=== PATIENT | female | born 1955 | race Caucasian/White ===

== ENCOUNTER 2018-01-20 11:50 | Day surgery (SDC) | payer BC ==
[~2018-01-20] VITALS: Ht 180.3 cm; Wt 95.3 kg
[~2018-01-20 11:50] MED LIST: FLONASE AL50 MCG/ACT; FOLIC ACID PO; LISINOP/HCTZ1 TA1 PO; VITAMIN B121000 MCG PO; VITAMIN D32000 UNI2 PO
[2018-01-20 16:00] VITALS: BP 116/69
== END 2018-01-20 16:15 | disposition home or self-care (01) | DRG 951 ==
LOC: ENDO 11:50 → ORM 16:15
PROVIDERS: ATTEND Internal Medicine Gastroenterology
PROC: 0DBN8ZX Excision of Sigmoid Colon, Via Natural or Artificial Opening Endoscopic, Diagnostic (ICD-10-PCS; principal; 2018-01-20)
DX: Z12.11 Encounter for screening for malignant neoplasm of colon (principal); D12.5 Benign neoplasm of sigmoid colon; K64.4 Residual hemorrhoidal skin tags; K64.8 Other hemorrhoids; I10 Essential (primary) hypertension; D56.9 Thalassemia, unspecified; Z86.010 Personal history of colon polyps; Z98.84 Bariatric surgery status